=== PATIENT | male | born 1945 | race Caucasian/White ===

== ENCOUNTER 2024-03-27 09:34 | Day surgery (SDC) | payer MEDICARE ==
[2024-03-25 17:30] VITALS: BMI 23.9
[~2024-03-27 09:34] MED LIST: LIDOCAINE 1% (10MG/ML) FOR IV START INTRADERMA PRN
[2024-03-27 10:19] VITALS: RESP 16; TEMP 98.7
[2024-03-27] MEDS: LACTATED RINGERS 1,000 ML IV SCH (10:19)
[2024-03-27] MEDS: IV FLUID CONTINUATION 1,000 ML IV ONE (10:19)
[2024-03-27] MEDS ORDERED: PROPOFOL 10 MG/ML 20 ML VIAL IV ONE (11:48)
--- NOTE | 2024-03-27 12:02 | P.PCN ---
Date of Procedure: 03/27/24 Procedure(s) Performed: BRIEF HISTORY: Patient is a 78-year-old pleasant white male scheduled for an elective colonoscopy as a part of evaluation of chronic diarrhea for the last 1 year duration. He is having 2-3 loose watery bowel movements daily. No blood or mucus in the stool. PROCEDURE PERFORMED: Colonoscopy with random biopsies. PREOPERATIVE DIAGNOSIS: Chronic diarrhea. IV sedation per Anesthesia. PROCEDURE: After informed consent was obtained, the patient, was brought into the endoscopy unit. IV sedation was administered by Anesthesia under continuous monitoring. Digital rectal examination was normal. Initially the Olympus CF-160 flexible video colonoscope was then inserted in the rectum, gradually advanced into the cecum without any difficulty. Careful examination was performed as the scope was gradually being withdrawn. Ileocecal valve and the appendiceal orifice were visualized and appeared normal. Prep was excellent. Mucosa of the cecum, ascending colon, transverse colon, descending colon, sigmoid colon, and rectum appeared normal. Biopsies were done from the ascending and descending colon to rule out microscopic/collagenous colitis. Scattered sigmoid diverticulosis seen. Retroflexion was performed in the rectum and internal hemorrhoids were seen. The patient tolerated the procedure well. IMPRESSION: Normal-appearing colon from rectum to cecum no encephalitis or colorectal neoplasia. Scattered sigmoid diverticulosis. Grade 2 internal eyes. RECOMMENDATIONS: Findings of this examination were discussed with the patient as well as his family. He was advised to follow with the biopsy results. He will be seen in the office in 2 weeks..
[2024-03-27 13:05] VITALS: BP 111/72; PULSE 85
== END 2024-03-27 13:07 | disposition home or self-care (01) ==
LOC: ORWHC2ENDO 09:34
PROVIDERS: ATTEND Internal Medicine Gastroenterology
DX: K52.9 Noninfective gastroenteritis and colitis, unspecified (principal); K57.30 Diverticulosis of large intestine without perforation or abscess without bleeding; K64.1 Second degree hemorrhoids; Z87.891 Personal history of nicotine dependence
CPT/HCPCS: 88305; 45380; J2704